=== PATIENT | male | born 2000 | race Caucasian/White ===

== ENCOUNTER 2023-03-01 14:28 | Emergency (ER) | payer OTHER ==
[2023-03-01] MEDS ORDERED: Acetaminophen 325 MG TAB ONE (15:42)
[2023-03-01] MEDS ORDERED: Ondansetron PF 4 MG/2 ML Vial ONE (15:42)
[2023-03-01 16:39] LABS: SARS-CoV-2 NAA Rapid Test Not Detected (NotDetected)
[2023-03-01] MEDS ORDERED: Ibuprofen 200 MG TAB ONE (16:41)
[2023-03-01 17:18] LABS: Mean Corpuscular HGB CONC 33.7 g/dL (32.0-36.0); Mean Corpuscular Hemoglobin 29.5 pg (25.0-35.0); Mean Corpuscular Volume 87.5 fl (78.0-98.0); Mean Platelet Volume 7.9 fL (7.4-10.4); Platelet Count 192 10x3/uL (130-400); RBC Distribution Width 10.9 % (11.5-14.5); Red Blood Cell (RBC) Count 4.07 mill/uL (4.00-5.20); White Blood Cell (WBC) Count 7.6 10x3/uL (4.8-10.8)
[2023-03-01 17:29] LABS: Band 19 % (5-11); Lymphocytes 8 % (28-48); MDiff Complete? YES; Monocytes 11 % (0-4); Neutrophil 59 % (31-61); Platelet Morphology Comment Appears Adequate; RBC Morphology Normal; Reactive Lymphocytes 2 % (0-10)
[2023-03-01 17:36] LABS: ALT (SGPT) 13 U/L (8-55); AST (SGOT) 16 U/L (5-34); Albumin 4.2 g/dL (3.5-5.0); Alkaline Phosphatase 61 U/L (50-130); Anion Gap 11 mmol/L (10-20); BUN (Urea Nitrogen) 12 mg/dL (8.9-20.6); Bilirubin, Total 0.8 mg/dL (0.2-1.2); Calc. Creatinine Clearance 0 mL/min (70-130); Calcium 8.9 mg/dL (7.8-10.44); Carbon Dioxide 26 mmol/L (22-29); Chloride 101 mmol/L (98-107); Estimated GFR 92; Glucose 97 mg/dL (70-105); Lipase 23 U/L (8-78); Magnesium 1.8 mg/dL (1.7-2.2); Potassium 3.7 mmol/L (3.5-5.1); Protein, Total 7.2 g/dL (6.0-8.3); Sodium 134 mmol/L (136-145)
== END 2023-03-01 18:14 | disposition home or self-care (01) ==
LOC: ERS 14:28
DX: R50.9 Fever, unspecified (principal); F17.290 Nicotine dependence, other tobacco product, uncomplicated; Z20.822 Contact with and (suspected) exposure to COVID-19
CPT/HCPCS: 74177; 80053; 83690; 83735; 85025; 96361; 96374; J2405

== ENCOUNTER 2023-11-28 13:21 | Emergency (ER) | payer MEDICAID, OTHER ==
[2023-11-28] MEDS ORDERED: Ondansetron ODT 4 MG TAB ONE (14:51)
[2023-11-28] MEDS ORDERED: Ibuprofen 800 MG TAB ONE (15:13)
[2023-11-28] MEDS ORDERED: Dexamethasone 10 MG/ML VIAL ONE (15:13)
== END 2023-11-28 15:50 | disposition home or self-care (01) ==
LOC: ERS 13:21
DX: J06.9 Acute upper respiratory infection, unspecified (principal); F17.210 Nicotine dependence, cigarettes, uncomplicated
CPT/HCPCS: 71045; J1100; Q0162